=== PATIENT | female | born 1990 | race Caucasian/White ===

== ENCOUNTER 2016-12-28 04:01 | Emergency (ER) | payer BC, OTHER ==
[~2016-12-28] VITALS: Ht 167.6 cm; Wt 80.3 kg
[~2016-12-28 04:01] MED LIST: AMOXICILLIN875 MG PO; Motrin PO; PEN-VEE K,VEET500 MG PO; PREDNISONE50 MG PO; ROBITUSSIN AC,T10 ML PO; TORADOL10 MG PO; ULTRAM50 MG PO
[2016-12-28] MEDS ORDERED: FIORICET,ESG1 TABLET PO (05:33)
[2016-12-28] MEDS ORDERED: ZOFRAN ODT4 MG PO (05:33)
[2016-12-28 05:43] VITALS: BP 115/68
== END 2016-12-28 05:46 | disposition home or self-care (01) ==
LOC: EME 04:01
DX: S00.83XA Contusion of other part of head, initial encounter (principal); Y04.2XXA Assault by strike against or bumped into by another person, initial encounter; Y92.511 Restaurant or cafe as the place of occurrence of the external cause; F17.200 Nicotine dependence, unspecified, uncomplicated
CPT/HCPCS: 70450; 70486; 99281; 99283